=== PATIENT | male | born 1960 | race Caucasian/White ===

== ENCOUNTER 2018-02-03 19:05 | Inpatient (IN) | payer OTHER, MEDICARE ==
[~2018-02-03] VITALS: Ht 177.8 cm; Wt 48.8 kg
[~2018-02-03 19:05] MED LIST: HYDR10SO PO
[2018-02-03 19:25] VITALS: BP 108/67; PULSE 97; RESP 16; TEMP 97; O2SAT 99
[2018-02-03] MEDS ORDERED: METO25TA3 PO (19:34)
[2018-02-03] MEDS ORDERED: SODIUM CHLOR 0.9% 1000 ML INJ 1,000 ML IV ONE (19:45)
--- NOTE | 2018-02-03 19:46 | RADRPT ---
EXAM DATE/TIME: 02/03/2018 19:32 [facility] COMPARISON: No previous studies available for comparison. INDICATIONS : Cough MEDICAL HISTORY : None. SURGICAL HISTORY : None. ENCOUNTER: Initial ACUITY: 1 day PAIN SCORE: Non-responsive. LOCATION: chest FINDINGS: A single view of the chest demonstrates the lungs to be symmetrically aerated without evidence of mas s, infiltrate or effusion. The cardiomediastinal contours are unremarkable. Osseous structures are intact. CONCLUSION: Normal examination. Hollis Tobias Jr., MD on February 03, 2018 at 19:44 Board Certified Radiologist. This report was verified electronically.
--- NOTE | 2018-02-03 20:14 | RADRPT ---
EXAM DATE/TIME: 02/03/2018 19:52 [facility] COMPARISON: No previous studies available for comparison. INDICATIONS : Altered mental status for four days RADIATION DOSE: 32.02 CTDIvol (mGy) MEDICAL HISTORY : Cirrhosis. SURGICAL HISTORY : None. ENCOUNTER: Initial ACUITY: 4 - 6 days PAIN SCALE: 0/10 LOCATION: cranial TECHNIQUE: Multiple contiguous axial images were obtained of the head. Using automated exposure control and adj ustment of the mA and/or kV according to patient size, radiation dose was kept as low as reasonably a chievable to obtain optimal diagnostic quality images. DICOM format image data is available electro nically for review and comparison. FINDINGS: Motion artifact generates limitations to this study. CEREBRUM: The ventricles are normal for age. No evidence of midline shift, mass lesion, hemorrhage or acute in farction. Chronic subdural fluid collections overlie the frontal lobes bilaterally. Maximum thickness on the left is 1.1 cm and on the right 5 mm. No acute hemorrhage. No mass effect.. POSTERIOR FOSSA: The cerebellum and brainstem are intact. The 4th ventricle is midline. The cerebellopontine angle i s unremarkable. EXTRACRANIAL: The visualized portion of the orbits is intact. SKULL: The calvaria is intact. No evidence of skull fracture. CONCLUSION: 1. Significantly limited by motion artifact. 2. Chronic subdural fluid collections bilaterally. No acute hemorrhage. 3. No acute abnormality. Hollis Tobias Jr., MD on February 03, 2018 at 20:10 Board Certified Radiologist. This report was verified electronically.
[2018-02-03 20:19] LABS: AUTOMATED NEUTROPHIL # 3.2 TH/MM3 (1.8-7.7); BASOPHIL % 0.7 % (0.0-2.0); EOSINOPHIL % 0.1 % (0.0-4.0); HEMATOCRIT 37.7 % (39.0-51.0); HEMOGLOBIN 12.4 GM/DL (13.0-17.0); LYMPH % 9.5 % (9.0-44.0); LYMPHOCYTE # 0.4 TH/MM3 (1.0-4.8); MEAN CELL VOLUME 107.4 FL (80.0-100.0); MEAN CORPUSCULAR HEMOGLOBIN 35.2 PG (27.0-34.0); MEAN CORPUSCULAR HGB CONC 32.8 % (32.0-36.0); MEAN PLATELET VOLUME 10.7 FL (7.0-11.0); MONO % 5.3 % (0.0-8.0); MONOCYTE # 0.2 TH/MM3 (0-0.9); NEUT % 84.4 % (16.0-70.0); PLATELET COUNT 95 TH/MM3 (150-450); RED BLOOD COUNT 3.51 MIL/MM3 (4.50-5.90); WHITE BLOOD COUNT 3.8 TH/MM3 (4.0-11.0)
[2018-02-03 20:24] LABS: AST (GOT) 431 U/L (15-37); BICARBONATE 12.7 MEQ/L (21.0-32.0); BLOOD UREA NITROGEN 19 MG/DL (7-18); CHLORIDE 102 MEQ/L (98-107); CREATININE 0.81 MG/DL (0.60-1.30); GLOMERULAR FILTRATION RATE 98 ML/MIN (>89); GLUCOSE,RANDOM 80 MG/DL (74-106); INTERNATIONAL NORMALIZED RATIO 1.1 RATIO; MAGNESIUM 1.3 MG/DL (1.5-2.5); PROTHROMBIN TIME - PATIENT 11.3 SEC (9.8-11.6); SODIUM (NA) 145 MEQ/L (136-145)
--- NOTE | 2018-02-03 20:25 | PD ---
HPI Chief Complaint: Altered Mental Status Time Seen by Provider: 19:24 Travel History International Travel<30 days: No Contact w/Intl Traveler<30days: No Traveled to known affect area: No History of Present Illness HPI 58-year-old male that presents to the ED for evaluation of altered mental status and alcohol abuse. Per report I was given by ambulance patient apparently was discontinued off his narcotic pain medication recently. Unclear as to why. He also has a significant history of alcohol use and apparently drinks about 1.5 L of vodka a day and apparently for the past 3-4 days patient has apparently had 7 bottles of's 1.5 L of vodka. Patient himself is not a good historian and cannot really give me much history. He appears to be very altered and intoxicated. He denies any pain and apparently he has some history of chronic back problems. He does take metoprolol. Unclear if patient is taking any medications. Per report given by ED nurse and ambulance apparently came shortly and told them that he has been drinking a lot and he has been altered for the past 3-4 days. No other history obtained. No sign of trauma. This is unusual for him per . He apparently does have a history of cirrhosis per the 's report. I will for she was not able to talk to the but she left before I could get into the room. Patient has no allergies to medication. Complains of nothing to me. Easily arousable and is somnolent. he is only alert to himself. PFSH Past Medical History Depression: Yes Cirrhosis: Yes Hypertension: Yes Past Surgical History Abdominal Surgery: Yes Social History Alcohol Use: Yes (daily) Tobacco Use: Yes (1ppd) Substance Use: No Allergies-Medications (Allergen,Severity, Reaction): Coded Allergies: No Known Allergies (Unverified Adverse Reaction, Unknown, 02/03/18) Reported Meds & Prescriptions Reported Meds & Active Scripts Active Reported Metoprolol Tartrate 25 Mg Tab 25 Mg PO DAILY Review of Systems ROS Limitations: Intoxication, Poor Historian Except as stated in HPI: all other systems reviewed are Neg Physical Exam Exam Limitations: Intoxication, Poor Historian Narrative GENERAL: SKIN: Warm and dry. HEAD: Atraumatic. Normocephalic. EYES: Pupils equal and round 4 mm reactive and accommodate. No scleral icterus. No injection or drainage. ENT: No nasal bleeding or discharge. Mucous membranes pink and moist. Tongue is midline. No uvula deviation. NECK: Trachea midline. No JVD. CARDIOVASCULAR: Regular rate and rhythm. No murmurs, S3, S4. RESPIRATORY: No accessory muscle use. Clear to auscultation. Breath sounds equal bilaterally. GASTROINTESTINAL: Abdomen soft, non-tender, nondistended. Hepatic and splenic margins not palpable. MUSCULOSKELETAL: Extremities without clubbing, cyanosis, or edema. No obvious deformities. Full range of motion of the upper and lower extremities bilaterally. 2+ pulses bilaterally. NEUROLOGICAL: Awake and alert and oriented 1. No obvious cranial nerve deficits. Motor grossly within normal limits. Five out of 5 muscle strength in the arms and legs. Normal speech. PSYCHIATRIC: Intoxicated mood and affect; insight and judgment not present at this time Data Data Last Documented VS Vital Signs Date Time Temp Pulse Resp B/P (MAP) Pulse Ox O2 Delivery O2 Flow Rate FiO2 02/03/18 19:25 97.0 97 16 108/67 (81) 99 Orders Orders Complete Blood Count With Diff (02/03/18:) Comprehensive Metabolic Panel (02/03/18:) Ckmb (Isoenzyme) Profile (02/03/18:29) Prothrombin Time / Inr (Pt) (02/03/18:) Act Partial Throm Time (Ptt) (02/03/18:) Blood Culture (02/03/18:) Urinalysis - C+S If Indicated (02/03/18:) Magnesium (Mg) (02/03/18:29) Ammonia (02/03/18:) Thyroid Stimulating Hormone (02/03/18:29) Chest, Single Ap (02/03/18:) Ct Brain W/O Iv Contrast(Rout) (02/03/18:29) Iv Access Insert/Monitor (02/03/18:) Ecg Monitoring (02/03/18:) Oximetry (02/03/18:) Drug Screen, Random Urine (02/03/18:29) Alcohol (Ethanol) (02/03/18 19:29) Salicylates (Aspirin) (02/03/18 19:29) Tylenol (Acetaminophen) (5/21/18 19:29) Sodium Chlor 0.9% 1000 Ml Inj (Ns 1000 M (02/03/18 19:45) Labs Laboratory Tests Test 02/03/18 19:45 MDM Medical Decision Making Medical Screen Exam Complete: Yes Emergency Medical Condition: Yes Medical Record Reviewed: Yes Interpretation(s) Last Impressions Chest X-Ray 02/03/181928 Signed Impressions: Service Date/Time: Saturday, February 03, 2018 19:32 - CONCLUSION: Normal examination. Hollis Tobias Jr., MD Differential Diagnosis Alcohol abuse versus altered mental status versus CVA versus ACS versus dehydration versus encephalopathy versus sepsis Narrative Course 58-year-old male that presents to the ED for evaluation of altered mental status and alcohol. Patient was properly examined and was found to have signs and symptoms consistent with appears to be altered mental status. Likely secondary to substance use. Patient was found to be hypotensive by ambulance. Initial blood pressure was 70 systolic. Patient was given 1 L by ambulance with improvement of blood pressure. Here patient still in the 100 systolic but was given another liter of fluid. Labs and imaging order. Labs and imaging showed Frankie Alexis February 03, 2018 20:25
[2018-02-03 20:40] LABS: ACETAMINOPHEN LESS THAN 2.0 MCG/ML (10.0-30.0); ALKALINE PHOSPHATASE 252 U/L (45-117); ALT (GPT) 138 U/L (12-78); CALCIUM-PROTEIN CORRECTED 7.6 MG/DL (8.5-10.1); TOTAL BILIRUBIN ADULT 2.4 MG/DL (0.2-1.0)
[2018-02-03] MEDS ORDERED: LORazepam 2 MG/ML VIAL IV PUSH PRN ×4 (20:45)
[2018-02-03] MEDS ORDERED: LORazepam 2 MG TAB PO PRN (20:45)
[2018-02-03] MEDS ORDERED: LORazepam 1 MG TAB PO PRN (20:45)
[2018-02-03] MEDS ORDERED: ACETAMINOPHEN 325 MG TAB PO PRN ×2 (20:45→21:00)
[2018-02-03] MEDS ORDERED: FLUMAZENIL 0.5 MG/5 ML VIAL IV PUSH PRN (20:45)
[2018-02-03] MEDS ORDERED: ONDANSETRON ODT 4 MG TAB PO PRN (20:45)
[2018-02-03] MEDS ORDERED: LACTULOSE SYRUP 20 GM/30 ML CUP PO ONE (20:45)
[2018-02-03] MEDS: SODIUM CHLORIDE 0.9% FLUSH 10 ML FLUSH IV FLUSH SCH (21:00)
[2018-02-03] MEDS ORDERED: BISACODYL 10 MG SUPP RECTAL PRN (21:00)
[2018-02-03] MEDS ORDERED: NALOXONE HCL 0.4 MG/ML AMP IV PUSH PRN (21:00)
[2018-02-03] MEDS: LACTULOSE SYRUP 20 GM/30 ML CUP PO SCH (21:00)
[2018-02-03] MEDS ORDERED: SENNOSIDES 8.6 MG TAB PO PRN (21:00)
[2018-02-03] MEDS ORDERED: SODIUM CHLORIDE 0.9% FLUSH 10 ML FLUSH IV FLUSH PRN (21:00)
[2018-02-03] MEDS ORDERED: MAGNESIUM HYDROXIDE SUSP 30 ML CUP PO PRN (21:00)
--- NOTE | 2018-02-03 21:21 | HHI.HP ---
HPI Service [facility] Primary Care Physician No Primary Care Physician Admission Diagnosis altered mental status, hepatic encephalopathy, alcohol abuse Diagnoses: Chief Complaint: altered mental status, alcohol abuse. Travel History International Travel<30 Days: No Contact w/Intl Traveler <30 Da: No Traveled to Known Affected Are: No History of Present Illness Mr. Rodriguez is a 58 year old male with a history of alcohol abuse who presents to the ED on 02/03/2018 due to altered mental status and alcohol abuse. He has been drinking about 1.5 L of vodka every day. Per ED note patient was fairly altered and intoxicated at the time of the examination. At the time of this interview, patient is alert, oriented 3 and able to converse coherently. He admits to drinking a lot. Denies any chest pain, shortness of breath, cough, fever or chills. No abdominal pain. He does report significant dysphagia especially to solids. His dysphagia symptoms have been present for about 3 months during which he has lost about 50 pounds. Whenever he eats, he throws up. Denies any changes in bowel or bladder habits. Review of Systems Except as stated in HPI: all other systems reviewed are Neg Past Family Social History Past Medical History Alcoholic liver disease, depression, hypertension Past Surgical History splenectomy Reported Medications Metoprolol tartrate 25 mg daily Allergies: Coded Allergies: No Known Allergies (Unverified Allergy, Unknown, 02/03/18) Family History No family history of cancer, diabetes, hypertension Social History Patient drinks alcohol daily. Smokes 1 pack a day. Denies using illicit drugs. Physical Exam Vital Signs Vital Signs Date Time Temp Pulse Resp B/P (MAP) Pulse Ox O2 Delivery O2 Flow Rate FiO2 02/03/18 19:25 97.0 97 16 108/67 (81) 99 Physical Exam GENERAL: Alert, oriented to person, place, time. Knows the name of the president. Somewhat flat affect and cachectic looking. SKIN: No rashes, ecchymoses or lesions. Warm and dry. HEAD: Atraumatic. Normocephalic. No temporal or scalp tenderness. EYES: Pupils equal round and reactive. No injection or drainage. ENT: Nose without bleeding, purulent drainage or septal hematoma. Airway patent. NECK: Trachea midline. No lymphadenopathy. Supple, nontender, no meningeal signs. CARDIOVASCULAR: Regular rate and rhythm without murmurs, gallops, or rubs. No JVD. RESPIRATORY: Clear to auscultation. Breath sounds equal bilaterally. No wheezes , rales, or rhonchi. GASTROINTESTINAL: Abdomen somewhat firm, non-tender, nondistended. No guarding. There is a well-healed incision mid abdomen. MUSCULOSKELETAL: Extremities without clubbing, cyanosis, or edema. NEUROLOGICAL: Awake and alert. Cranial nerves II through XII intact. No focal neurological deficits. Normal speech. Laboratory Laboratory Tests Test 02/03/18 19:45 White Blood Count 3.8 Red Blood Count 3.51 Hemoglobin 12.4 Hematocrit 37.7 Mean Corpuscular Volume 107.4 Mean Corpuscular Hemoglobin 35.2 Mean Corpuscular Hemoglobin Concent 32.8 Red Cell Distribution Width 17.0 Platelet Count 95 Mean Platelet Volume 10.7 Neutrophils (%) (Auto) 84.4 Lymphocytes (%) (Auto) 9.5 Monocytes (%) (Auto) 5.3 Eosinophils (%) (Auto) 0.1 Basophils (%) (Auto) 0.7 Neutrophils # (Auto) 3.2 Lymphocytes # (Auto) 0.4 Monocytes # (Auto) 0.2 Eosinophils # (Auto) 0.0 Basophils # (Auto) 0.0 CBC Comment AUTO DIFF Prothrombin Time 11.3 Prothromb Time International Ratio 1.1 Activated Partial Thromboplast Time 23.3 Blood Urea Nitrogen 19 Creatinine 0.81 Random Glucose 80 Total Protein 6.0 Albumin 3.0 Calcium Level 7.0 Magnesium Level 1.3 Alkaline Phosphatase 252 Aspartate Amino Transf (AST/SGOT) 431 Alanine Aminotransferase (ALT/SGPT) 138 Total Bilirubin 2.4 Sodium Level 145 Potassium Level 3.5 Chloride Level 102 Carbon Dioxide Level 12.7 Anion Gap 30 Estimat Glomerular Filtration Rate 98 Protein Corrected Calcium 7.6 Ammonia 75 Total Creatine Kinase 48 Thyroid Stimulating Hormone 3rd Gen 0.605 Salicylates Level 3.3 Acetaminophen Level LESS THAN 2.0 Ethyl Alcohol Level 415 Date/Time Source Procedure Growth Status 02/03/18 19:45 Blood Peripheral Aerobic Blood Culture Pending Received 02/03/18 19:45 Blood Peripheral Anaerobic Blood Culture Pending Received Result Diagram: 02/03/18194402/03/181944 Imaging Last Impressions Head CT 02/03/181928 Signed Impressions: Service Date/Time: Saturday, February 03, 2018 19:52 - CONCLUSION: 1. Significantly limited by motion artifact. 2. Chronic subdural fluid collections bilaterally. No acute hemorrhage. 3. No acute abnormality. Hollis Tobias Jr., MD Chest X-Ray 02/03/181928 Signed Impressions: Service Date/Time: Saturday, February 03, 2018 19:32 - CONCLUSION: Normal examination. MD Сергей Smith Jr. VTE Risk Assessment Caprini VTE Risk Assessment: Mod/High Risk (score >= 2) Caprini Risk Assessment Model Point Value = 1 Point Value = 2 Point Value = 3 Point Value = 5 Age 41-60 Minor surgery BMI > 25 kg/m2 Swollen legs Varicose veins or History of unexplained or recurrent spontaneous Oral contraceptives or hormone replacement Sepsis (< 1 month) Serious lung disease, including pneumonia (< 1 month) Abnormal pulmonary function Acute myocardial infarction Congestive heart failure (< 1 month) History of inflammatory bowel disease Medical patient at bed rest Age 61-74 Arthroscopic surgery Major open surgery (> 45 min) Laparoscopic surgery (> 45 min) Malignancy Confined to bed (> 72 hours) Immobilizing plaster cast Central venous access Age >= 75 History of VTE Family history of VTE Factor V Leiden Prothrombin [id number] Lupus anticoagulant Anticardiolipin antibodies Elevated serum homocysteine Heparin-induced thrombocytopenia Other congenital or acquired thrombophilia Stroke (< 1 month) Elective arthroplasty Hip, pelvis, or leg fracture Acute spinal cord injury (< 1 month) Prophylaxis Regimen Total Risk Factor Score Risk Level Prophylaxis Regimen 0-1 Low Early ambulation 2 Moderate Order ONE of the following: *Sequential Compression Device (SCD) *Heparin 5000 units SQ BID 3-4 Higher Order ONE of the following medications: *Heparin 5000 units SQ TID *Enoxaparin/Lovenox 40 mg SQ daily (WT < 150 kg, CrCl > 30 mL/min) *Enoxaparin/Lovenox 30 mg SQ daily (WT < 150 kg, CrCl > 10-29 mL/min) *Enoxaparin/Lovenox 30 mg SQ BID (WT < 150 kg, CrCl > 30 mL/min) AND/OR *Sequential Compression Device (SCD) 5 or more Highest Order ONE of the following medications: *Heparin 5000 units SQ TID (Preferred with Epidurals) *Enoxaparin/Lovenox 40 mg SQ daily (WT < 150 kg, CrCl > 30 mL/min) *Enoxaparin/Lovenox 30 mg SQ daily (WT < 150 kg, CrCl > 10-29 mL/min) *Enoxaparin/Lovenox 30 mg SQ BID (WT < 150 kg, CrCl > 30 mL/min) AND *Sequential Compression Device (SCD) Assessment and Plan Problem List: (1) Alcoholic liver disease ICD Code: K70.9 - Alcoholic liver disease, unspecified (2) Hepatic encephalopathy ICD Code: K72.90 - Hepatic failure, unspecified without coma Assessment and Plan Mr. Rodriguez is a 58-year-old male with a history of alcohol abuse who presents to the emergency department due to altered mental status, alcohol abuse. Patient has been drinking about 1.5 L of vodka every day. Acute hepatic encephalopathy -Initial ammonia level 75. AST, ALT 431, 138 respectively. Alk phos 252. INR 1.1, total bilirubin 2.4 -No need to follow ammonia level. -We will start on lactulose 30 mg 4 times daily to obtain 3-4 loose bowel movements. -Also start rifaximin 550 mg twice daily Alcoholic liver disease Dysphagia Weight loss -Dysphagia and weight loss in the background of alcoholic liver disease is concerning for malignancy. -We will obtain hepatitis panel. Consult GI for further workup including possibly EGD. -Speech therapy consult to do swallow evaluation. Alcohol abuse Hypomagnesemia - Continue CIWA protocol. Folic acid, thiamine, IV fluid. - We will give 4 g of magnesium sulfate IV. Full code. Lovenox. Physician Certification 2 Midnight Certification Type: Admission for Inpatient Services Order for Inpatient Services The services are ordered in accordance with Medicare regulations or non- Medicare payer requirements, as applicable. In the case of services not specified as inpatient-only, they are appropriately provided as inpatient services in accordance with the 2-midnight benchmark. Estimated LOS (days): 2 days is the estimated time the patient will need to remain in the hospital, assuming treatment plan goals are met and no additional complications. Post-Hospital Plan: Tiffani Dumont DO February 03, 2018 9:21 pm
[2018-02-03 21:46] LABS: BANDS 7 % (0-6); LYMPHOCYTES 5 % (9-44); MONOCYTES 3 % (0-8); NEUTROPHIL # MANUAL DIFF 3.5 TH/MM3 (1.8-7.7); POLYS (SEG NEUTROPHILS) 85 % (16-70)
[2018-02-03 21:59] LABS: TARGET CELLS 1+ (NORMAL)
[2018-02-03] MEDS ORDERED: ENOXAPARIN SODIUM 40 MG/0.4 ML SYRINGE SQ SCH (22:00)
[2018-02-03] MEDS ORDERED: ACETAMINOPHEN 500 MG CPLT PO PRN (22:00)
[2018-02-03] MEDS: SODIUM CHLOR 0.9% 1000 ML INJ 1,000 ML IV SCH (22:02)
[2018-02-03 22:37] VITALS: BP 120/71; PULSE 117; RESP 16; TEMP 97.4; O2SAT 95
[2018-02-03] MEDS: THIAMINE INJ 100 MG in SODIUM CHLORIDE 0.9% INJ 100 ML IV SCH (22:51)
[2018-02-03] MEDS: RIFAXIMIN 550 MG TAB PO SCH (22:51)
[2018-02-03 23:00] VITALS: O2SAT 97
[2018-02-04] VITALS (8 sets, daily range): BP systolic 115–158; BP diastolic 68–95; PULSE 103–118; RESP 16–23; TEMP 97.6–98.9; O2SAT 96–99
[2018-02-04] MEDS: MAGNESIUM SULFATE 1 GM PREMIX 100 ML IV SCH ×4 (00:20→11:04)
[2018-02-04] MEDS: ONDANSETRON HCL 4 MG/2 ML VIAL IVP PRN ×2 (03:25→15:24)
[2018-02-04] MEDS: LACTULOSE SYRUP 20 GM/30 ML CUP PO SCH ×4 (08:43→20:05)
[2018-02-04] MEDS: FOLIC ACID 1 MG TAB PO SCH (08:47)
[2018-02-04] MEDS: RIFAXIMIN 550 MG TAB PO SCH ×2 (08:47→20:05)
[2018-02-04] MEDS: SODIUM CHLORIDE 0.9% FLUSH 10 ML FLUSH IV FLUSH SCH ×2 (08:50→20:05)
[2018-02-04 09:21] LABS: AUTOMATED NEUTROPHIL # 5.6 TH/MM3 (1.8-7.7); BASOPHIL % 0.3 % (0.0-2.0); HEMATOCRIT 32.3 % (39.0-51.0); HEMOGLOBIN 10.5 GM/DL (13.0-17.0); LYMPH % 8.4 % (9.0-44.0); LYMPHOCYTE # 0.5 TH/MM3 (1.0-4.8); MEAN CELL VOLUME 108.2 FL (80.0-100.0); MEAN CORPUSCULAR HEMOGLOBIN 35.1 PG (27.0-34.0); MEAN CORPUSCULAR HGB CONC 32.5 % (32.0-36.0); MONO % 5.6 % (0.0-8.0); MONOCYTE # 0.4 TH/MM3 (0-0.9); NEUT % 85.7 % (16.0-70.0); PLATELET COUNT 87 TH/MM3 (150-450); RED BLOOD COUNT 2.99 MIL/MM3 (4.50-5.90); RED CELL DISTRIBUTION WIDTH 16.5 % (11.6-17.2); WHITE BLOOD COUNT 6.6 TH/MM3 (4.0-11.0)
--- NOTE | 2018-02-04 09:46 | PD.CONS ---
HPI History of Present Illness This is a 58 year old male with hx etoh abuse who presented to the ER with AMS. GI is consulted for dysphagia, weight loss, vomiting, hepatic encephalopathy. He denies any difficulty swallowing but says he has no appetite. He admits losing weight, 110lbs in 2 months. He has had n/v in the last 2 months as well. He admits lower abd pain for 3 months. He had an EGD and colonoscopy in [place] and was told he had "ulcers." At that time he was having blood in his stool but denies having that now. He admits black tarry stool. He drinks "alot " and says he stopped for awhile and then started again last weekend. Per EMR he drinks 1.5L vodka daily. Pt is poor and inconsistent historian. (Kerrie Shannon) PFSH Past Medical History Alcoholic liver disease, depression, hypertension Past Surgical History splenectomy (Kerrie Shannon) Coded Allergies: No Known Allergies (Unverified Allergy, Unknown, 02/03/18) Family History No family history of cancer, diabetes, hypertension Social History Patient drinks alcohol daily. Smokes 1 pack a day. Denies using illicit drugs. (Kerrie Shannon) Review of Systems Constitutional: COMPLAINS OF: Weight loss Endocrine: DENIES: Polydipsia Eyes: DENIES: Blurred vision Ears, nose, mouth, throat: DENIES: Hearing loss Respiratory: DENIES: Cough Cardiovascular: DENIES: Chest pain Gastrointestinal: COMPLAINS OF: Abdominal pain, Black stools, Nausea, Vomiting , Anorexia, DENIES: Bloody stools, Difficulty Swallowing Genitourinary: DENIES: Urinary incontinence Musculoskeletal: DENIES: Muscle aches Integumentary: DENIES: Abnormal pigmentation Hematologic/lymphatic: DENIES: Bruising Immunologic/allergic: DENIES: Eczema Neurologic: COMPLAINS OF: Abnormal gait (ambulates with cane) Psychiatric: COMPLAINS OF: Confusion (Kerrie Shannon) GI Exam Vitals I&O Vital Signs Date Time Temp Pulse Resp B/P (MAP) Pulse Ox O2 Delivery O2 Flow Rate FiO2 02/04/18 08:32 97.6 104 23 124/69 (87) 96 02/04/18 03:15 97.7 103 16 115/68 (84) 98 02/03/18 23:00 97 02/03/18 22:37 97.4 117 16 120/71 (87) 95 02/03/18 19:25 97.0 97 16 108/67 (81) 99 Imaging Last Impressions Head CT 02/03/181928 Signed Impressions: Service Date/Time: Saturday, February 03, 2018 19:52 - CONCLUSION: 1. Significantly limited by motion artifact. 2. Chronic subdural fluid collections bilaterally. No acute hemorrhage. 3. No acute abnormality. Hollis Tobias Jr., MD Chest X-Ray 02/03/181928 Signed Impressions: Service Date/Time: Saturday, February 03, 2018 19:32 - CONCLUSION: Normal examination. Hollis Tobias Jr., MD Laboratory Test 02/03/18 19:45 02/04/18 08:57 White Blood Count 3.8 TH/MM3 6.6 TH/MM3 Red Blood Count 3.51 MIL/MM3 2.99 MIL/MM3 Hemoglobin 12.4 GM/DL 10.5 GM/DL Hematocrit 37.7 % 32.3 % Mean Corpuscular Volume 107.4 FL 108.2 FL Mean Corpuscular Hemoglobin 35.2 PG 35.1 PG Mean Corpuscular Hemoglobin Concent 32.8 % 32.5 % Red Cell Distribution Width 17.0 % 16.5 % Platelet Count 95 TH/MM3 87 TH/MM3 Mean Platelet Volume 10.7 FL 10.0 FL Neutrophils (%) (Auto) 84.4 % 85.7 % Lymphocytes (%) (Auto) 9.5 % 8.4 % Monocytes (%) (Auto) 5.3 % 5.6 % Eosinophils (%) (Auto) 0.1 % 0.0 % Basophils (%) (Auto) 0.7 % 0.3 % Neutrophils # (Auto) 3.2 TH/MM3 5.6 TH/MM3 Lymphocytes # (Auto) 0.4 TH/MM3 0.5 TH/MM3 Monocytes # (Auto) 0.2 TH/MM3 0.4 TH/MM3 Eosinophils # (Auto) 0.0 TH/MM3 0.0 TH/MM3 Basophils # (Auto) 0.0 TH/MM3 0.0 TH/MM3 CBC Comment AUTO DIFF AUTO DIFF Differential Total Cells Counted 100 Neutrophils % (Manual) 85 % Band Neutrophils % 7 % Lymphocytes % 5 % Monocytes % 3 % Neutrophils # (Manual) 3.5 TH/MM3 Differential Comment FINAL DIFF MANUAL Platelet Estimate LOW Platelet Morphology Comment NORMAL Target Cells 1+ Prothrombin Time 11.3 SEC Prothromb Time International Ratio 1.1 RATIO Activated Partial Thromboplast Time 23.3 SEC Blood Urea Nitrogen 19 MG/DL Creatinine 0.81 MG/DL Random Glucose 80 MG/DL Total Protein 6.0 GM/DL Albumin 3.0 GM/DL Calcium Level 7.0 MG/DL Magnesium Level 1.3 MG/DL Alkaline Phosphatase 252 U/L Aspartate Amino Transf (AST/SGOT) 431 U/L Alanine Aminotransferase (ALT/SGPT) 138 U/L Total Bilirubin 2.4 MG/DL Sodium Level 145 MEQ/L Potassium Level 3.5 MEQ/L Chloride Level 102 MEQ/L Carbon Dioxide Level 12.7 MEQ/L Anion Gap 30 MEQ/L Estimat Glomerular Filtration Rate 98 ML/MIN Protein Corrected Calcium 7.6 MG/DL Ammonia 75 MCMOL/L Total Creatine Kinase 48 U/L Thyroid Stimulating Hormone 3rd Gen 0.605 uIU/ML Salicylates Level 3.3 MG/DL Acetaminophen Level LESS THAN 2.0 MCG/ML Ethyl Alcohol Level 415 MG/DL Date/Time Source Procedure Growth Status 02/03/18 19:45 Blood Peripheral Aerobic Blood Culture Pending Received 02/03/18 19:45 Blood Peripheral Anaerobic Blood Culture Pending Received Physical Examination HEENT: PERRL; normocephalic; atraumatic; no jaundice. CHEST: CTA CARDIAC: RRR ABDOMEN: Soft, distended, nontender; no hepatosplenomegaly; bowel sounds are present in all four quadrants. EXTREMITIES: No clubbing, cyanosis, or edema. thin SKIN: Normal; no rash; no jaundice. RECORDS ASSOCIATE: oriented but slow to answer (Kerrie ShannonP) Assessment and Plan Plan ASSESSMENT - anorexia, weight loss - unclear etiology. pt cites loss > 100lbs in 2 months. drinks heavily, smokes. denies dysphagia. US liver pending. hx unclear. - n/v - unclear etiology. - ?melena - pt admits black tarry stools, can provide no further info. says he had EGD 2 months ago and was told he had ulcers. does not know where he had this done. - rectal bleeding - some months ago, resolved per pt. thinks he had recent colonoscopy but can provide no details - elevated LFTs - likely 2/2 etoh. US liver pending. etoh 415 on admission. hep panel pending. - elevated NH - 75. PLAN - liver w/u - lactulose - EGD and colonoscopy - obtain consent - NPO after midnight - clears today - mg citrate - await US - consider CT scan - etoh cessation - further recs as case unfolds pt seen by myself and DR Medina and this note is on his behalf (Kerrie Shannon) Physician Comments Patient seen and examined Agree with above Continue with current supportive care Monitor labs EGD colonoscopy tomorrow (Ashvin Medina MD) Kerrie Shannon February 04, 2018 09:45 Ashvin Medina MD February 04, 2018 21:14
[2018-02-04] MEDS: THIAMINE INJ 100 MG in SODIUM CHLORIDE 0.9% INJ 100 ML IV SCH (09:56)
[2018-02-04 10:12] LABS: BANDS 10 % (0-6); BASOPHILS 1 % (0-2); CORRECTED NUCLEATED RBC 3 /100 WBC (0-0); LYMPHOCYTES 2 % (9-44); METAMYELOCYTES 1 % (0-1); MONOCYTES 1 % (0-8); NEUTROPHIL # MANUAL DIFF 6.3 TH/MM3 (1.8-7.7); NUCLEATED RED BLOOD CELL 3 (0-0); POLYS (SEG NEUTROPHILS) 84 % (16-70)
[2018-02-04 10:17] LABS: OVALOCYTES 1+ (NORMAL)
--- NOTE | 2018-02-04 10:41 | HHI.PR ---
Subjective Remarks Follow-up on patient with alcohol abuse, hepatic encephalopathy. Patient seen and examined. Patient is a very poor historian. States he is tired. He is complaining of having some anxiety and shakiness. When asked if he is having any auditory or visual hallucinations he replies sometimes. He complains of diarrhea but cannot tell me when his last bowel movement was. He denies any complaints of nausea or vomiting. He denies any fever or chills. Denies any chest pain or shortness of breath. He knows he is in the hospital but cannot tell me that he is in [place]. He is unable to answer correctly the city he is in. He is able to tell me the state, year and president. Objective Vitals Vital Signs Date Time Temp Pulse Resp B/P (MAP) Pulse Ox O2 Delivery O2 Flow Rate FiO2 02/04/18 08:32 97.6 104 23 124/69 (87) 96 02/04/18 03:15 97.7 103 16 115/68 (84) 98 02/03/18 23:00 97 02/03/18 22:37 97.4 117 16 120/71 (87) 95 02/03/18 19:25 97.0 97 16 108/67 (81) 99 I/O 02/03/18 02/03/18 02/03/18 02/04/18 02/04/18 02/04/18 07:00 15:00 23:00 07:00 15:00 23:00 Intake Total 100 ml Balance 100 ml Intake IV Total 100 ml Result Diagram: 02/04/18 0857 02/03/181944 Imaging Last Impressions Head CT 02/03/181928 Signed Impressions: Service Date/Time: Saturday, February 03, 2018 19:52 - CONCLUSION: 1. Significantly limited by motion artifact. 2. Chronic subdural fluid collections bilaterally. No acute hemorrhage. 3. No acute abnormality. Hollis Tobias Jr., MD Chest X-Ray 02/03/181928 Signed Impressions: Service Date/Time: Saturday, February 03, 2018 19:32 - CONCLUSION: Normal examination. Hollis Tobias Jr., MD Objective Remarks GENERAL: This is a thin, cachectic ill-appearing male, INAD. Awake and alert. Partially oriented, unable to tell me correctly the name of the hospital or city he is in. Knows his name, year, state and name of the president. Mildly tremulous. SKIN: No rashes, ecchymoses or lesions. Warm and dry. HEAD: Atraumatic. Normocephalic. No temporal or scalp tenderness. EYES: Pupils equal round and reactive. No injection or drainage. ENT: Nose without bleeding or purulent drainage. Airway patent. Dry mucus membranes. NECK: Trachea midline. No lymphadenopathy. Supple, nontender, no meningeal signs. CARDIOVASCULAR: Tachycardic without murmurs, gallops, or rubs. No JVD. RESPIRATORY: Clear to auscultation. Breath sounds equal bilaterally. No wheezes , rales, or rhonchi. GASTROINTESTINAL: Abdomen somewhat firm, tender in RUQ and epigastric area, nondistended. No guarding. There is a well-healed incision mid abdomen. MUSCULOSKELETAL: Extremities without clubbing, cyanosis, or edema. NEUROLOGICAL: Awake and alert. Cranial nerves II through XII grossly intact. Able to move all extremities spontaneously. No focal neurological deficits. Normal speech. PSYCHIATRIC: Flat affect. Questionable judgment and insight. Procedures None A/P Problem List: (1) Alcoholic liver disease ICD Code: K70.9 - Alcoholic liver disease, unspecified (2) Hepatic encephalopathy ICD Code: K72.90 - Hepatic failure, unspecified without coma Assessment and Plan Mr. Rodriguez is a 58-year-old male with a history of alcohol abuse who presents to the emergency department due to altered mental status, alcohol abuse. Patient has been drinking about 1.5 L of vodka every day. Acute hepatic encephalopathy Alcoholic ketoacidosis Initial ammonia level 75. AST, ALT 431, 138 respectively. Alk phos 252. INR 1.1, total bilirubin 2.4 Bicarb 12.7 Anion gap 30 -repeat CMP this am -continue on lactulose 30 mg 4 times daily to obtain 3-4 loose bowel movements. This patient is such a poor historian, strict intake and output to monitor for BMs. -continue on rifaximin 550 mg twice daily -continue to monitor Alcoholic liver disease Dysphagia Weight loss Dysphagia and weight loss in the background of alcoholic liver disease is concerning for malignancy. -Consult GI for further workup including possibly EGD. -Speech therapy consult to do swallow evaluation. Alcohol abuse Hypomagnesemia, given 4g IV mag -Continue CIWA protocol. Folic acid, thiamine, IV fluid. -repeat Mag level Transaminitis, secondary to above AST 431, ALT 138, Alk phos 252 -Continue to trend LFTs -Avoid hepatotoxic agents -follow up on Liver US results -Follow-up on hepatitis profile results Thrombocytopenia, suspect secondary to liver dysfunction INR 1.1 Platelet count trending down, 95 to 87 -No evidence of active bleeding, continue to monitor -Continue to monitor platelet count and coag studies Macrocytic anemia -Obtain iron studies, ferritin, B12 and folate level -obtain stool for Hemoccult study Full code. Hold [place]. An Hughes February 04, 2018 10:41
[2018-02-04 10:42] LABS: ALBUMIN 3.1 GM/DL (3.4-5.0); BICARBONATE 7.4 MEQ/L (21.0-32.0); CALCIUM 6.6 MG/DL (8.5-10.1); CREATININE 0.55 MG/DL (0.60-1.30); MAGNESIUM 1.5 MG/DL (1.5-2.5)
[2018-02-04 10:47] LABS: TOTAL BILIRUBIN ADULT 2.8 MG/DL (0.2-1.0); TOTAL PROTEIN 5.7 GM/DL (6.4-8.2)
[2018-02-04 10:53] LABS: CALCIUM-PROTEIN CORRECTED 7.3 MG/DL (8.5-10.1)
[2018-02-04] MEDS ORDERED: POTASSIUM CHLORIDE 20 MEQ CONTROLLED RELEASE TAB PO ONE (11:30)
[2018-02-04 13:03] LABS: INTERNATIONAL NORMALIZED RATIO 1.1 RATIO; PROTHROMBIN TIME - PATIENT 11.4 SEC (9.8-11.6)
[2018-02-04] MEDS: CALCIUM CARBONATE 1.25 GM (CA 500 MG) TAB PO SCH ×2 (13:16→20:05)
[2018-02-04 13:42] LABS: % SATURATION IRON PROFILE 85.9 % (20-50); FERRITIN 830 NG/ML (26-388); IRON (FE) 113 MCG/DL (65-175); TOTAL IRON BINDING CAPACITY 132 MCG/DL (250-450)
[2018-02-04 13:47] LABS: CARCINOEMBRYONIC ANTIGEN 8.3 NG/ML (0.2-5.0)
[2018-02-04 14:03] LABS: CA 19-9 6.4 U/ML (0.0-35.0)
[2018-02-04 14:34] LABS: PHOSPHORUS 1.5 MG/DL (2.5-4.9)
--- NOTE | 2018-02-04 15:44 | RADRPT ---
EXAM DATE: 02/04/2018 3:32 PM EDT AGE/SEX: 58 years / Male INDICATIONS: Elevated liver functions. CLINICAL DATA: This is the patient's initial encounter. Patient reports that signs and symptoms have been present for 1 day and indicates a pain score of 3/10. MEDICAL/SURGICAL HISTORY: Hypertension. Chronic obstructive pulmonary disease. Cirrhosis. Al cohol abuse. Splenectomy. Back surgery. Wrist surgery. COMPARISON: No prior [facility] exams available for comparison. MEASUREMENTS (cm x cm x cm): Liver:__ 17.4 cm length Common Bile Duct:__ Nonvisualized Right Kidney:__ 10.7 x 5.2 x 5.0 cm. Spleen:__ n/a FINDINGS: Liver: There is increased echogenicity throughout the liver. No dilated biliary ducts. No evidence o f ascites. Portal Vein: Hepatopedal flow seen in portal vein. Common Duct: No intraluminal mass or stone visualized. Gallbladder: Demonstrates no wall thickening or pericholecystic fluid. No stones seen. Pancreas: The visualized portions are within normal limits. Right Kidney: No mass or hydronephrosis. Measures CONCLUSION: 1. No evidence of gallstones or biliary tract obstruction. 2. Increased echogenicity throughout the liver suggestive of fatty infiltration and/or hepatocellula r disease. Electronically signed by: Jerson Hampton MD 02/04/2018 3:43 PM EDT
[2018-02-04] MEDS ORDERED: MAGNESIUM CITRATE SOLN 300 ML BTL PO ONE ×2 (16:15→18:15)
[2018-02-04] MEDS: SODIUM CHLOR 0.9% 1000 ML INJ 1,000 ML IV SCH (16:16)
[2018-02-04] MEDS ORDERED: POTASSIUM PHOSPHATE MONOBASIC 500 MG TAB PO PRN (19:00)
[2018-02-04] MEDS ORDERED: POTASSIUM PHOSPHATE INJ 30 MMOL in SODIUM CHLOR 0.9% 250 ML INJ 250 ML IV PRN (19:00)
[2018-02-04] MEDS ORDERED: MAGNESIUM OXIDE 400 MG TAB PO PRN (19:00)
[2018-02-04] MEDS ORDERED: SODIUM PHOSPHATE INJ 30 MMOL in SODIUM CHLOR 0.9% 250 ML INJ 240 ML IV PRN (19:00)
[2018-02-04] MEDS ORDERED: POTASSIUM CHLORIDE 25 MEQ EFFERVESCENT TAB PO PRN (19:00)
[2018-02-04] MEDS ORDERED: POTASSIUM CHLOR 20 MEQ PREMIX 100 ML IV PRN (19:00)
[2018-02-04] MEDS ORDERED: POTASSIUM PHOSPHATE MONOBASIC 500 MG TAB PO/TUBE PRN (19:00)
[2018-02-04] MEDS ORDERED: POTASSIUM CHLOR 40 MEQ PREMIX 100 ML IV PRN ×2 (19:00)
[2018-02-04] MEDS ORDERED: MAGNESIUM SULFATE INJ 4 GM in SODIUM CHLORIDE 0.9% INJ 92 ML IV PRN (19:00)
[2018-02-05] VITALS (13 sets, daily range): BP systolic 101–156; BP diastolic 63–98; PULSE 90–129; RESP 12–20; TEMP 97.6–99.3; O2SAT 93–99
[2018-02-05] MEDS: SODIUM CHLOR 0.9% 1000 ML INJ 1,000 ML IV SCH (03:25)
[2018-02-05 06:40] LABS: AUTOMATED NEUTROPHIL # 4.6 TH/MM3 (1.8-7.7); BASOPHIL % 0.1 % (0.0-2.0); EOSINOPHIL % 0.2 % (0.0-4.0); HEMATOCRIT 29.2 % (39.0-51.0); HEMOGLOBIN 9.9 GM/DL (13.0-17.0); LYMPH % 9.5 % (9.0-44.0); LYMPHOCYTE # 0.5 TH/MM3 (1.0-4.8); MEAN CELL VOLUME 105.1 FL (80.0-100.0); MEAN CORPUSCULAR HEMOGLOBIN 35.7 PG (27.0-34.0); MEAN PLATELET VOLUME 10.7 FL (7.0-11.0); MONO % 6.2 % (0.0-8.0); MONOCYTE # 0.3 TH/MM3 (0-0.9); PLATELET COUNT 76 TH/MM3 (150-450); RED BLOOD COUNT 2.78 MIL/MM3 (4.50-5.90); RED CELL DISTRIBUTION WIDTH 15.6 % (11.6-17.2); WHITE BLOOD COUNT 5.4 TH/MM3 (4.0-11.0)
[2018-02-05 07:18] LABS: % SATURATION IRON PROFILE 87.1 % (20-50); ALBUMIN 2.8 GM/DL (3.4-5.0); ALKALINE PHOSPHATASE 288 U/L (45-117); ALT (GPT) 132 U/L (12-78); AST (GOT) 522 U/L (15-37); BICARBONATE 17.4 MEQ/L (21.0-32.0); BLOOD UREA NITROGEN 4 MG/DL (7-18); CALCIUM 6.4 MG/DL (8.5-10.1); CHLORIDE 101 MEQ/L (98-107); CREATININE 0.52 MG/DL (0.60-1.30); FERRITIN 1318 NG/ML (26-388); GLOMERULAR FILTRATION RATE 164 ML/MIN (>89); GLUCOSE,RANDOM 149 MG/DL (74-106); IRON (FE) 111 MCG/DL (65-175); MAGNESIUM 1.3 MG/DL (1.5-2.5); PHOSPHORUS 0.7 MG/DL (2.5-4.9); SODIUM (NA) 142 MEQ/L (136-145); TOTAL BILIRUBIN ADULT 5.1 MG/DL (0.2-1.0); TOTAL IRON BINDING CAPACITY 127 MCG/DL (250-450); TOTAL PROTEIN 5.5 GM/DL (6.4-8.2)
[2018-02-05 07:23] LABS: CALCIUM-PROTEIN CORRECTED 7.2 MG/DL (8.5-10.1)
[2018-02-05 07:56] LABS: BANDS 16 % (0-6); CORRECTED NUCLEATED RBC 17 /100 WBC (0-0); LYMPHOCYTES 3 % (9-44); MONOCYTES 3 % (0-8); NEUTROPHIL # MANUAL DIFF 5.1 TH/MM3 (1.8-7.7); NUCLEATED RED BLOOD CELL 17 (0-0); POLYS (SEG NEUTROPHILS) 78 % (16-70)
[2018-02-05 07:57] LABS: OVALOCYTES 1+ (NORMAL)
[2018-02-05] MEDS: CALCIUM CARBONATE 1.25 GM (CA 500 MG) TAB PO SCH ×2 (08:08→20:43)
[2018-02-05] MEDS: RIFAXIMIN 550 MG TAB PO SCH ×2 (08:08→20:43)
[2018-02-05] MEDS: FOLIC ACID 1 MG TAB PO SCH (08:08)
[2018-02-05] MEDS: SODIUM CHLORIDE 0.9% FLUSH 10 ML FLUSH IV FLUSH SCH ×2 (08:09→20:43)
[2018-02-05] MEDS: THIAMINE INJ 100 MG in SODIUM CHLORIDE 0.9% INJ 100 ML IV SCH (08:09)
[2018-02-05] MEDS: LACTULOSE SYRUP 20 GM/30 ML CUP PO SCH ×4 (08:09→20:43)
--- NOTE | 2018-02-05 09:42 | HHI.PR ---
Subjective Remarks Reports having hallucinations sometimes. Still shaky. Multiple electrolyte abnormalities. Objective Vitals Vital Signs Date Time Temp Pulse Resp B/P (MAP) Pulse Ox O2 Delivery O2 Flow Rate FiO2 02/05/18 06:00 129 02/05/18 04:00 108 02/05/18 04:00 98.5 108 16 152/78 (102) 98 02/05/18 02:00 103 02/05/18 00:00 98.9 106 20 148/98 (115) 99 02/05/18 00:00 106 02/04/18 22:00 104 02/04/18 20:55 97 21 02/04/18 20:00 112 02/04/18 20:00 98.2 112 19 158/85 (109) 98 02/04/18 16:56 98.0 110 23 144/95 (111) 98 02/04/18 13:00 98.7 105 18 142/84 (103) 99 02/04/18 11:13 98.9 118 23 152/88 (109) 98 I/O 02/04/18 02/04/18 02/04/18 02/05/18 02/05/18 02/05/18 07:00 15:00 23:00 07:00 15:00 23:00 Intake Total 200 ml 826 ml 1274 ml 375 ml Output Total 700 ml 1050 ml Balance 200 ml 126 ml 224 ml 375 ml Intake Oral 600 ml 240 ml IV Total 200 ml 226 ml 1034 ml 375 ml Output Urine Total 650 ml 1050 ml Emesis 50 ml # Voids 2 3 # Bowel Movements 2 4 5 Result Diagram: 02/05/18 0458 02/05/18 0458 Objective Remarks GENERAL: Patient appear older than stated age, in no acute distress. CARDIOVASCULAR: Normal rate and regular rhythm without murmurs, gallops, or rubs. RESPIRATORY: Good respiratory efforts. Breath sounds equal and clear to auscultation bilaterally. GASTROINTESTINAL: Abdomen soft, non-tender, non-distended. Normal active bowel sounds MUSCULOSKELETAL: Extremities without cyanosis, or edema. NEURO: Alert & Oriented x4 to person, place, time, situation. Moves all ext x4. Tremulous. PSYCH: Somewhat anxious. Procedures None A/P Problem List: (1) Alcoholic liver disease ICD Code: K70.9 - Alcoholic liver disease, unspecified (2) Hepatic encephalopathy ICD Code: K72.90 - Hepatic failure, unspecified without coma Assessment and Plan 58-year-old male with a history of alcohol abuse who presents to the emergency department due to altered mental status, alcohol abuse. Patient has been drinking about 1.5 L of vodka every day. Acute hepatic encephalopathy Alcoholic ketoacidosis Initial ammonia level 75. AST, ALT 431, 138 respectively. Alk phos 252. INR 1.1, total bilirubin 2.4 Bicarb 12.7 Anion gap 30 Multiple severe electrolytes abnormalities including Hypokalemia, hypomagnesemia , hypocalcemia -Follow up CMP later today -continue on lactulose 30 mg 4 times daily to obtain 3-4 loose bowel movements. This patient is such a poor historian, strict intake and output to monitor for BMs. -continue on rifaximin 550 mg twice daily -continue to monitor - Replace electrolytes per ICU protocol - Change IV fluid to ns +bicarb Alcoholic liver disease Dysphagia Weight loss Dysphagia and weight loss in the background of alcoholic liver disease. -GI following and planning for endoscopy -Speech therapy consult for swallow evaluation. Alcohol dependence Early DTs. Having hallucinations Hypomagnesemia, given 4g IV mag -Continue CIWA protocol. Folic acid, thiamine, IV fluid. Transaminitis, secondary to above AST 431, ALT 138, Alk phos 252 -Continue to trend LFTs -Avoid hepatotoxic agents -follow up on Liver US results -Follow-up on hepatitis profile results Thrombocytopenia, suspect secondary to liver dysfunction INR 1.1 Platelet count trending down -No evidence of active bleeding, continue to monitor -Continue to monitor platelet count and coag studies Macrocytic anemia -Iron level normal. Ferritin high. -Probably alcohol related and liver dysfunction. GI planning for endoscopy. - continue to monitor Full code. Hold Lovenox. Discharge Planning Keep in ICU for today. Monitor progress. Randolph Holden MD February 05, 2018 09:42
[2018-02-05] MEDS: SODIUM BICARBONATE 8.4% INJ 50 MEQ in SODIUM CHLOR 0.45% 1000 ML INJ 1,000 ML IV SCH ×2 (10:00→20:44)
[2018-02-05] MEDS ORDERED: LIDOCAINE HCL 1% PF 5 ML SYRINGE OTHER ONE (12:00)
[2018-02-05] MEDS: PANTOPRAZOLE SOD 40 MG DELAYED RELEASE TAB PO SCH ×2 (12:00→20:43)
[2018-02-05] MEDS ORDERED: DO NOT ADM ANY ANTICOAGULANT DRUGS PRN (12:00)
[2018-02-05] MEDS ORDERED: PROPOFOL 200 MG/20 ML AMP IV ONE (12:00)
--- NOTE | 2018-02-05 12:06 | PD.PROCEDR ---
GI Procedure PROCEDURE PERFORMED EGD with biopsy followed by colonoscopy with snare polypectomy INDICATION FOR PROCEDURE Anorexia, weight loss, nausea vomiting, melena, rectal bleeding, and elevated liver function tests PROCEDURE: The procedure, risks and benefits were discussed with Patient/POA and informed consent was obtained. Anesthesia sedated Patient with Diprivan. Patient was placed in the left lateral decubitus position. EGD: The Pentax videoscope was introduced through the oropharynx and advanced to the second portion of the duodenum under direct visualization. Retroflexion was performed in the stomach. FINDINGS: The esophagus there was distal esophageal mucosal friability with ulceration and erythema this was biopsied this would be grade D reflux esophagitis the proximal esophagus was unremarkable no esophageal varices noted The stomach there was a small hiatal hernia the gastric mucosa appeared to be diffusely erythemic and a punctate and patchy fashion this was biopsied from the antrum no gastric varices no ulcerations or erosions no blood or bleeding The duodenum there was patchy erythema in the duodenal bulb this was biopsied the rest of the duodenum was unremarkable Colonoscopy: The Pentax videoscope was introduced through the rectum and advanced to cecum where the ileocecal valve and appendiceal orifice were identified. Retroflexion was performed in the rectum. Colonic prep was good FINDINGS: Colonic withdrawal time greater than 6 minutes. As the scope was slowly withdrawn colonic mucosa was carefully inspected patient was noted to have a small polyp in the cecum this was excised using cold snare technique there was a second polyp which was moderately sized in the descending colon this was excised using cold snare technique there was a slightly larger polyp in the sigmoid region this was excised using hot snare technique the patient was noted to have diverticulosis in the sigmoid this was mild retroflexion in rectum did reveal small size internal hemorrhoids otherwise rectal examination was unremarkable ESTIMATED BLOOD LOSS: None SPECIMENS REMOVED: Esophageal, gastric, duodenum, colon biopsies COMPLICATIONS: None IMPRESSION: Esophagitis grade D Hiatal hernia Gastritis Colon polyps Diverticulosis Internal hemorrhoids PLAN: Await biopsies Start pantoprazole 40 mg twice daily Continue with current supportive care Monitor labs Recommend EGD in 2 months Recommend colonoscopy in 5 years Ashvin Medina MD February 05, 2018 12:05
[2018-02-05] MEDS ORDERED: MIDAZOLAM HCL 2 MG/2 ML VIAL ONE (13:57)
[2018-02-05] MEDS ORDERED: CALCIUM GLUCONATE INJ 1 GM in SODIUM CHLORIDE 0.9% INJ 90 ML IV ONE (15:00)
[2018-02-05] MEDS: POTASSIUM CHLOR 20 MEQ PREMIX 100 ML IV PRN ×3 (16:08→23:50)
[2018-02-05] MEDS: ACETAMINOPHEN/HYDROcodone 325 MG/5 MG TAB PO PRN (16:28)
[2018-02-05] MEDS: MAGNESIUM SULFATE INJ 2 GM in SODIUM CHLORIDE 0.9% INJ 96 ML IV PRN (17:20)
[2018-02-05 21:25] LABS: BICARBONATE 23.2 MEQ/L (21.0-32.0); CALCIUM 6.3 MG/DL (8.5-10.1); CREATININE 0.49 MG/DL (0.60-1.30)
[2018-02-05 21:51] LABS: TOTAL PROTEIN 5.2 GM/DL (6.4-8.2)
[2018-02-05 21:55] LABS: CALCIUM-PROTEIN CORRECTED 7.2 MG/DL (8.5-10.1)
[2018-02-05] MEDS ORDERED: POTASSIUM CHLORIDE 25 MEQ EFFERVESCENT TAB PO ONE (22:15)
[2018-02-06] VITALS (12 sets, daily range): BP systolic 104–123; BP diastolic 68–87; PULSE 76–130; RESP 14–17; TEMP 98.4–99.6; O2SAT 95–98
[2018-02-06] MEDS: POTASSIUM CHLOR 20 MEQ PREMIX 100 ML IV PRN ×2 (03:53→18:19)
[2018-02-06 06:30] LABS: HEMATOCRIT 29.7 % (39.0-51.0); HEMOGLOBIN 10.3 GM/DL (13.0-17.0); MEAN CELL VOLUME 102.5 FL (80.0-100.0); MEAN CORPUSCULAR HEMOGLOBIN 35.4 PG (27.0-34.0); MEAN CORPUSCULAR HGB CONC 34.6 % (32.0-36.0); MEAN PLATELET VOLUME 11.2 FL (7.0-11.0); PLATELET COUNT 83 TH/MM3 (150-450); RED CELL DISTRIBUTION WIDTH 15.7 % (11.6-17.2); WHITE BLOOD COUNT 5.6 TH/MM3 (4.0-11.0)
[2018-02-06 07:16] LABS: ALBUMIN 2.6 GM/DL (3.4-5.0); BICARBONATE 27.2 MEQ/L (21.0-32.0); CREATININE 0.37 MG/DL (0.60-1.30); DIRECT BILIRUBIN ADULT 1.7 MG/DL (0.0-0.2); INDIRECT BILIRUBIN 0.8 MG/DL (0.0-0.8); PHOSPHORUS 0.3 MG/DL (2.5-4.9); TOTAL BILIRUBIN ADULT 2.5 MG/DL (0.2-1.0)
[2018-02-06 07:44] LABS: CALCIUM 6.4 MG/DL (8.5-10.1); TOTAL PROTEIN 5.3 GM/DL (6.4-8.2)
[2018-02-06 07:46] LABS: CALCIUM-PROTEIN CORRECTED 7.3 MG/DL (8.5-10.1)
--- NOTE | 2018-02-06 08:01 | HHI.PR ---
Subjective Remarks Patient still with severe multiple electrolyte abnormalities. He reports that he is feeling better. Still shaky. Objective Vitals Vital Signs Date Time Temp Pulse Resp B/P (MAP) Pulse Ox O2 Delivery O2 Flow Rate FiO2 02/06/18 06:00 92 02/06/18 04:00 95 02/06/18 04:00 99.2 95 14 123/82 (96) 95 02/06/18 02:00 130 02/06/18 00:00 98.4 87 14 118/76 (90) 95 02/06/18 00:00 87 02/05/18 22:00 90 02/05/18 20:00 103 02/05/18 20:00 98.7 103 12 101/63 (76) 93 02/05/18 18:00 110 02/05/18 16:00 97.6 94 15 112/73 (86) 96 02/05/18 16:00 124 02/05/18 14:00 96 02/05/18 12:00 97.5 112 15 114/73 (87) 98 Nasal Cannula 2 02/05/18 11:45 114 15 112/72 (85) 97 Nasal Cannula 2 02/05/18 11:38 97.6 115 14 107/60 (76) 99 Nasal Cannula 3 02/05/18 10:12 99.3 129 16 156/95 (115) 98 02/05/18 10:00 112 02/05/18 09:59 97 21 I/O 02/05/18 02/05/18 02/05/18 02/06/18 02/06/18 02/06/18 07:00 15:00 23:00 07:00 15:00 23:00 Intake Total 1274 ml 1375 ml 790 ml 440 ml Output Total 1050 ml 250 ml 520 ml Balance 224 ml 1125 ml 790 ml -80 ml Intake Oral 240 ml 240 ml 240 ml IV Total 1034 ml 975 ml 550 ml 200 ml Other 400 ml Output Urine Total 1050 ml 250 ml 520 ml # Voids 3 3 1 # Bowel Movements 5 5 4 Result Diagram: 02/06/18 0514 02/06/18 05 Objective Remarks GENERAL: Patient appear older than stated age, in no acute distress. CARDIOVASCULAR: Normal rate and regular rhythm without murmurs, gallops, or rubs. RESPIRATORY: Good respiratory efforts. Breath sounds equal and clear to auscultation bilaterally. GASTROINTESTINAL: Abdomen soft, non-tender, non-distended. Normal active bowel sounds MUSCULOSKELETAL: Extremities without cyanosis, or edema. NEURO: Alert & Oriented x4 to person, place, time, situation. Moves all ext x4. Tremulous. PSYCH: Calm Procedures None A/P Problem List: (1) Alcoholic liver disease ICD Code: K70.9 - Alcoholic liver disease, unspecified (2) Hepatic encephalopathy ICD Code: K72.90 - Hepatic failure, unspecified without coma Assessment and Plan 58-year-old male with a history of alcohol abuse who presents to the emergency department due to altered mental status, alcohol abuse. Patient has been drinking about 1.5 L of vodka every day. Acute hepatic encephalopathy Alcoholic ketoacidosis On presentation ammonia level 75. AST, ALT 431, 138 respectively. Alk phos 252. INR 1.1, total bilirubin 2.4 Bicarb 12.7 Anion gap 30 Multiple severe electrolytes abnormalities including Hypokalemia, hypomagnesemia , hypocalcemia -Follow up CMP in a.m. -Discontinue lactulose -continue on rifaximin 550 mg twice daily -continue to monitor - Replace electrolytes per ICU protocol -Give additional mag and potassium today. Alcoholic liver disease Dysphagia Weight loss Dysphagia and weight loss in the background of alcoholic liver disease. -GI following. Patient underwent EGD and colonoscopy which revealed esophagitis , gastritis, colon polyps, diverticulosis, and internal hemorrhoids. - Continue Protonix twice daily. -Speech therapy following. Alcohol dependence Early DTs. Having hallucinations Hypomagnesemia, give additional 2 g IV of magnesium sulfate in addition to the protocol dose. -Continue CIWA protocol. Folic acid, thiamine, IV fluid. Transaminitis, secondary to above AST 431, ALT 138, Alk phos 252 -Continue to trend LFTs -Avoid hepatotoxic agents -Liver ultrasound noted. Thrombocytopenia, suspect secondary to liver dysfunction INR 1.1 Platelet count improving -No evidence of active bleeding, continue to monitor -Continue to monitor platelet count and coag studies Macrocytic anemia -Iron level normal. Ferritin high. -Probably alcohol related and liver dysfunction. - continue to monitor Full code. Hold Lovenox. Discharge Planning Continue care in ICU. Aggressive electrolyte replacement. Randolph Holden MD February 06, 2018 08:01
[2018-02-06] MEDS ORDERED: CALCIUM GLUCONATE INJ 1 GM in SODIUM CHLORIDE 0.9% INJ 100 ML IV ONE (08:15)
[2018-02-06] MEDS: THIAMINE INJ 100 MG in SODIUM CHLORIDE 0.9% INJ 100 ML IV SCH (08:58)
[2018-02-06] MEDS: RIFAXIMIN 550 MG TAB PO SCH ×2 (08:58→19:32)
[2018-02-06] MEDS: FOLIC ACID 1 MG TAB PO SCH (08:58)
[2018-02-06] MEDS: PANTOPRAZOLE SOD 40 MG DELAYED RELEASE TAB PO SCH ×2 (08:58→19:32)
[2018-02-06] MEDS: CALCIUM CARBONATE 1.25 GM (CA 500 MG) TAB PO SCH ×2 (08:58→19:32)
[2018-02-06] MEDS: ACETAMINOPHEN/HYDROcodone 325 MG/5 MG TAB PO PRN (08:58)
[2018-02-06] MEDS: LACTULOSE SYRUP 20 GM/30 ML CUP PO SCH ×2 (08:58→13:04)
[2018-02-06] MEDS: SODIUM CHLORIDE 0.9% FLUSH 10 ML FLUSH IV FLUSH SCH ×2 (08:59→19:33)
[2018-02-06] MEDS: MAGNESIUM SULFATE 1 GM PREMIX 100 ML IV SCH ×2 (08:59→09:15)
--- NOTE | 2018-02-06 14:06 | HHI.GIFU ---
Subjective Remarks Resting in the bed Still having some nausea and abdominal pain Temp 99.2 Diarrhea multiple stools small amounts (Bev Tuttle) Objective Vitals I&O Vital Signs Date Time Temp Pulse Resp B/P (MAP) Pulse Ox O2 Delivery O2 Flow Rate FiO2 02/06/18 12:00 87 02/06/18 10:00 98 02/06/18 08:00 99.0 100 16 119/85 (96) 97 02/06/18 08:00 76 02/06/18 06:00 92 02/06/18 04:00 95 02/06/18 04:00 99.2 95 14 123/82 (96) 95 02/06/18 02:00 130 02/06/18 00:00 98.4 87 14 118/76 (90) 95 02/06/18 00:00 87 02/05/18 22:00 90 02/05/18 20:00 103 02/05/18 20:00 98.7 103 12 101/63 (76) 93 02/05/18 18:00 110 02/05/18 16:00 97.6 94 15 112/73 (86) 96 02/05/18 16:00 124 I/O 02/05/18 02/05/18 02/05/18 02/06/18 02/06/18 02/06/18 06:59 14:59 22:59 06:59 14:59 22:59 Intake Total 1274 ml 1375 ml 790 ml 440 ml 1150 ml Output Total 1050 ml 250 ml 520 ml Balance 224 ml 1125 ml 790 ml -80 ml 1150 ml Intake Oral 240 ml 240 ml 240 ml IV Total 1034 ml 975 ml 550 ml 200 ml 1150 ml Other 400 ml Output Urine Total 1050 ml 250 ml 520 ml # Voids 3 3 1 # Bowel Movements 5 5 4 Laboratory Laboratory Tests Test 02/05/18 20:23 02/06/18 05:14 02/06/18 10:30 Blood Urea Nitrogen 2 3 Creatinine 0.49 0.37 Random Glucose 188 105 Total Protein 5.2 5.3 Calcium Level 6.3 6.4 Sodium Level 140 141 Potassium Level 2.4 2.7 2.4 Chloride Level 99 99 Carbon Dioxide Level 23.2 27.2 Anion Gap 18 15 Estimat Glomerular Filtration Rate 175 243 Protein Corrected Calcium 7.2 7.3 Tumor Marker Alpha Fetoprotein 2.5 White Blood Count 5.6 Red Blood Count 2.90 Hemoglobin 10.3 Hematocrit 29.7 Mean Corpuscular Volume 102.5 Mean Corpuscular Hemoglobin 35.4 Mean Corpuscular Hemoglobin Concent 34.6 Red Cell Distribution Width 15.7 Platelet Count 83 Mean Platelet Volume 11.2 Albumin 2.6 Phosphorus Level 0.3 Magnesium Level 1.0 Alkaline Phosphatase 287 Aspartate Amino Transf (AST/SGOT) 275 Alanine Aminotransferase (ALT/SGPT) 98 Total Bilirubin 2.5 Direct Bilirubin 1.7 Indirect Bilirubin 0.8 Date/Time Source Procedure Growth Status 02/03/18 19:45 Blood Peripheral Aerobic Blood Culture - Preliminary NO GROWTH IN 3 DAYS Resulted 02/03/18 19:45 Blood Peripheral Anaerobic Blood Culture - Preliminary NO GROWTH IN 3 DAYS Resulted Imaging Last Impressions Liver Ultrasound 02/04/18 0000 Signed Impressions: CONCLUSION: 1. No evidence of gallstones or biliary tract obstruction. 2. Increased echogenicity throughout the liver suggestive of fatty infiltratio n and/or hepatocellular disease. Head CT 02/03/181928 Signed Impressions: Service Date/Time: Saturday, February 03, 2018 19:52 - CONCLUSION: 1. Significantly limited by motion artifact. 2. Chronic subdural fluid collections bilaterally. No acute hemorrhage. 3. No acute abnormality. Hollis Tobias Jr., MD Chest X-Ray 02/03/181928 Signed Impressions: Service Date/Time: Saturday, February 03, 2018 19:32 - CONCLUSION: Normal examination. Hollis Tobias Jr., MD Physical Exam HEENT: normocephalic; atraumatic; no jaundice. Speech understandable NECK: Neck is supple, no JVD, no lymphadenopathy. CHEST: Mild diminished breath sounds especially in the bases CARDIAC: Regular rate and rhythm. ABDOMEN: Round, soft, mild distention bowel sounds are present in all four quadrants. EXTREMITIES: No clubbing, cyanosis, or edema. SKIN: Normal; no rash; no jaundice. 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 pt cites loss > 100lbs in 2 months. drinks heavily, smokes. denies dysphagia. US liver pending. hx unclear. - n/v - unclear etiology. - ?melena - pt admits black tarry stools, can provide no further info. says he had EGD 2 months ago and was told he had ulcers. does not know where he had this done. - rectal bleeding - some months ago, resolved per pt. thinks he had recent colonoscopy but can provide no details - elevated LFTs - likely 2/2 etoh. US liver pending. etoh 415 on admission. hep panel pending. - elevated NH - 75. 02/06/2018 patient continues to have diarrhea and right lower abdominal pain. Incontinent of stool, positive for nausea but no vomiting and able to eat small amounts of regular food now. Patient has some generalized complaints of dysuria EGD was done on 02/05/2018 showing grade D esophagitis, hiatal hernia, gastritis , colon polyps, diverticulosis, and internal hemorrhoids. Labs total bilirubin 2.5 AST 275 ALT 98, alkaline phosphatase 287, total protein low at 5.3, albumin 2.6. Plan biopsies pending Continue Protonix 40 mg twice daily Folic acid, thiamine Antiemetics Monitor labs with special attention to hemoglobin currently 10.3 Recommend repeating EGD in 2 months and colonoscopy in 5 years Supportive care pt seen by myself and Dr. Medina, note written on his behalf (Bev Tuttle) Physician Comments Patient seen and examined Agree with above Continue with current supportive care Monitor labs Biopsies revealed severe reflux esophagitis and adenomatous polyps Labs consistent with alcoholic hepatitis workup for the liver in progress (Ashvin Medina MD) Bev Tuttle February 06, 2018 14:06 Ashvin Medina MD February 06, 2018 20:45
[2018-02-06 14:30] LABS: ALPHA-1-ANTITRYPSIN 92 mg/dL (100 - 190)
[2018-02-06] MEDS ORDERED: POTASSIUM CHLORIDE 25 MEQ EFFERVESCENT TAB PO ONE (15:00)
[2018-02-06 15:10] LABS: SMOOTH MUSCLE TOTAL AUTOABS Negative (Negative)
[2018-02-06] MEDS: POTASSIUM CHLORIDE 25 MEQ EFFERVESCENT TAB PO ONE ×2 (17:42→18:00)
[2018-02-07] VITALS (12 sets, daily range): BP systolic 101–137; BP diastolic 66–97; PULSE 67–112; RESP 15–57; TEMP 98.5–99.7; O2SAT 94–98
[2018-02-07 02:38] LABS: HEMATOCRIT 28.3 % (39.0-51.0); HEMOGLOBIN 9.7 GM/DL (13.0-17.0); MEAN CORPUSCULAR HEMOGLOBIN 35.2 PG (27.0-34.0); MEAN CORPUSCULAR HGB CONC 34.2 % (32.0-36.0); MEAN PLATELET VOLUME 11.2 FL (7.0-11.0); PLATELET COUNT 102 TH/MM3 (150-450); RED BLOOD COUNT 2.75 MIL/MM3 (4.50-5.90); RED CELL DISTRIBUTION WIDTH 15.3 % (11.6-17.2)
[2018-02-07 02:52] LABS: BICARBONATE 31.9 MEQ/L (21.0-32.0); CALCIUM 7.1 MG/DL (8.5-10.1); CREATININE 0.28 MG/DL (0.60-1.30); MAGNESIUM 1.2 MG/DL (1.5-2.5)
[2018-02-07] MEDS: POTASSIUM CHLOR 20 MEQ PREMIX 100 ML IV PRN ×6 (03:21→23:23)
[2018-02-07 03:24] LABS: CALCIUM-PROTEIN CORRECTED 8.1 MG/DL (8.5-10.1); TOTAL PROTEIN 5.3 GM/DL (6.4-8.2)
--- NOTE | 2018-02-07 08:41 | HHI.PR ---
Subjective Remarks Patient reports he is feeling better. Stool is becoming more formed. Still with significant electrolyte abnormalities. Objective Vitals Vital Signs Date Time Temp Pulse Resp B/P (MAP) Pulse Ox O2 Delivery O2 Flow Rate FiO2 02/07/18 06:00 94 02/07/18 04:00 99.7 91 17 137/88 (104) 98 02/07/18 04:00 91 02/07/18 02:00 93 02/07/18 00:00 99.1 87 16 123/81 (95) 95 02/07/18 00:00 87 02/06/18 22:00 91 02/06/18 20:00 108 02/06/18 20:00 99.1 108 14 121/87 (98) 98 02/06/18 18:00 95 02/06/18 16:00 99.0 93 17 105/70 (82) 95 02/06/18 16:00 93 02/06/18 14:00 91 02/06/18 12:00 98.5 87 16 104/68 (80) 95 02/06/18 12:00 87 02/06/18 10:00 98 I/O 02/06/18 02/06/18 02/06/18 02/07/18 02/07/18 02/07/18 07:00 15:00 23:00 07:00 15:00 23:00 Intake Total 440 ml 1360 ml 450 ml 460 ml Output Total 520 ml 650 ml 1100 ml Balance -80 ml 1360 ml -200 ml -640 ml Intake Oral 240 ml 350 ml 360 ml IV Total 200 ml 1360 ml 100 ml 100 ml Output Urine Total 520 ml 650 ml 1100 ml # Voids 1 # Bowel Movements 4 3 2 Result Diagram: 02/07/18 0203 02/07/18 0203 Objective Remarks GENERAL: Patient appear older than stated age, in no acute distress. CARDIOVASCULAR: Normal rate and regular rhythm without murmurs, gallops, or rubs. RESPIRATORY: Good respiratory efforts. Breath sounds equal and clear to auscultation bilaterally. GASTROINTESTINAL: Abdomen soft, non-tender, non-distended. Normal active bowel sounds MUSCULOSKELETAL: Extremities without cyanosis, or edema. NEURO: Alert & Oriented x4 to person, place, time, situation. Moves all ext x4. Less tremulous. PSYCH: Calm Procedures None A/P Problem List: (1) Alcoholic liver disease ICD Code: K70.9 - Alcoholic liver disease, unspecified (2) Hepatic encephalopathy ICD Code: K72.90 - Hepatic failure, unspecified without coma Assessment and Plan 58-year-old male with a history of alcohol abuse who presents to the emergency department due to altered mental status, alcohol abuse. Patient has been drinking about 1.5 L of vodka every day. Acute hepatic encephalopathy Alcoholic ketoacidosis On presentation ammonia level 75. AST, ALT 431, 138 respectively. Alk phos 252. INR 1.1, total bilirubin 2.4 Bicarb 12.7 Anion gap 30 Multiple severe electrolytes abnormalities including Hypokalemia, hypomagnesemia , hypocalcemia -Follow up CMP in a.m. -Discontinue lactulose -continue on rifaximin 550 mg twice daily -continue to monitor - Replace electrolytes per ICU protocol -Still with significant hypokalemia, hypomagnesemia. Replace aggressively Alcoholic liver disease severe protein-calorie malnutrition with weight loss, low albumin. Dysphagia -GI following. Patient underwent EGD and colonoscopy which revealed esophagitis , gastritis, colon polyps, diverticulosis, and internal hemorrhoids. - Continue Protonix twice daily. -Speech therapy following. Reg diet with thin liquids. Alcohol dependence Early DTs. No longer having hallucinations. Hypomagnesemia, give additional 4 g IV of magnesium sulfate. -Continue CIWA protocol. Folic acid, thiamine, IV fluid. Transaminitis, secondary to above AST 431, ALT 138, Alk phos 252 -Continue to trend LFTs -Avoid hepatotoxic agents -Liver ultrasound noted. Thrombocytopenia, suspect secondary to liver dysfunction INR 1.1 Platelet count improving -No evidence of active bleeding, continue to monitor -Continue to monitor platelet count and coag studies Macrocytic anemia -Iron level normal. Ferritin high. -Probably alcohol related and liver dysfunction. - continue to monitor Full code. Hold Lovenox. Discharge Planning Continue care in ICU. Aggressive electrolyte replacement. Randolph Holden MD February 07, 2018 08:41
[2018-02-07] MEDS: PANTOPRAZOLE SOD 40 MG DELAYED RELEASE TAB PO SCH ×2 (08:54→21:01)
[2018-02-07] MEDS: RIFAXIMIN 550 MG TAB PO SCH ×2 (08:54→21:01)
[2018-02-07] MEDS: FOLIC ACID 1 MG TAB PO SCH ×2 (08:54→09:00)
[2018-02-07] MEDS: CALCIUM CARBONATE 1.25 GM (CA 500 MG) TAB PO SCH ×2 (08:54→21:01)
[2018-02-07] MEDS: MAGNESIUM SULFATE INJ 2 GM in SODIUM CHLORIDE 0.9% INJ 96 ML IV PRN (08:55)
[2018-02-07] MEDS: THIAMINE INJ 100 MG in SODIUM CHLORIDE 0.9% INJ 100 ML IV SCH ×2 (08:55→11:18)
[2018-02-07] MEDS: SODIUM CHLORIDE 0.9% FLUSH 10 ML FLUSH IV FLUSH SCH ×2 (08:55→21:01)
[2018-02-07] MEDS ORDERED: LACTULOSE SYRUP 20 GM/30 ML CUP PO SCH (09:00)
[2018-02-07] MEDS: MAGNESIUM SULFATE 1 GM PREMIX 100 ML IV SCH ×2 (11:17→11:30)
--- NOTE | 2018-02-07 11:53 | HHI.GIFU ---
Subjective Remarks Diarrhea improving, less abdominal pain today No fevers Hemoglobin 9.7 no obvious bleeding Still having some nausea but able to eat small amounts of regular food (Bev Tuttle) Objective Vitals I&O Vital Signs Date Time Temp Pulse Resp B/P (MAP) Pulse Ox O2 Delivery O2 Flow Rate FiO2 02/07/18 06:00 94 02/07/18 04:00 99.7 91 17 137/88 (104) 98 02/07/18 04:00 91 02/07/18 02:00 93 02/07/18 00:00 99.1 87 16 123/81 (95) 95 02/07/18 00:00 87 02/06/18 22:00 91 02/06/18 20:00 108 02/06/18 20:00 99.1 108 14 121/87 (98) 98 02/06/18 18:00 95 02/06/18 16:00 99.0 93 17 105/70 (82) 95 02/06/18 16:00 93 02/06/18 14:00 91 02/06/18 12:00 98.5 87 16 104/68 (80) 95 02/06/18 12:00 87 I/O 02/06/18 02/06/18 02/06/18 02/07/18 02/07/18 02/07/18 07:00 15:00 23:00 07:00 15:00 23:00 Intake Total 440 ml 1360 ml 450 ml 460 ml Output Total 520 ml 650 ml 1100 ml Balance -80 ml 1360 ml -200 ml -640 ml Intake Oral 240 ml 350 ml 360 ml IV Total 200 ml 1360 ml 100 ml 100 ml Output Urine Total 520 ml 650 ml 1100 ml # Voids 1 # Bowel Movements 4 3 2 Laboratory Laboratory Tests Test 02/07/18 02:03 White Blood Count 5.0 Red Blood Count 2.75 Hemoglobin 9.7 Hematocrit 28.3 Mean Corpuscular Volume 103.0 Mean Corpuscular Hemoglobin 35.2 Mean Corpuscular Hemoglobin Concent 34.2 Red Cell Distribution Width 15.3 Platelet Count 102 Mean Platelet Volume 11.2 Blood Urea Nitrogen 3 Creatinine 0.28 Random Glucose 137 Total Protein 5.3 Calcium Level 7.1 Magnesium Level 1.2 Sodium Level 141 Potassium Level 2.7 Chloride Level 99 Carbon Dioxide Level 31.9 Anion Gap 10 Estimat Glomerular Filtration Rate 335 Protein Corrected Calcium 8.1 Date/Time Source Procedure Growth Status 02/03/18 19:45 Blood Peripheral Aerobic Blood Culture - Preliminary NO GROWTH IN 4 DAYS Resulted 02/03/18 19:45 Blood Peripheral Anaerobic Blood Culture - Preliminary NO GROWTH IN 4 DAYS Resulted Imaging Last Impressions Liver Ultrasound 02/04/18 0000 Signed Impressions: CONCLUSION: 1. No evidence of gallstones or biliary tract obstruction. 2. Increased echogenicity throughout the liver suggestive of fatty infiltratio n and/or hepatocellular disease. Head CT 02/03/181928 Signed Impressions: Service Date/Time: Saturday, February 03, 2018 19:52 - CONCLUSION: 1. Significantly limited by motion artifact. 2. Chronic subdural fluid collections bilaterally. No acute hemorrhage. 3. No acute abnormality. Hollis Tobias Jr., MD Chest X-Ray 02/03/181928 Signed Impressions: Service Date/Time: Saturday, February 03, 2018 19:32 - CONCLUSION: Normal examination. Hollis Tobias Jr., MD Physical Exam HEENT: normocephalic; atraumatic; pale, mild jaundice NECK: Neck is supple, no JVD, no lymphadenopathy. CHEST: Mild diminished breath sounds especially in the bases, no obvious rhonchi CARDIAC: Regular rate and rhythm., Distant but no murmur noted ABDOMEN: Round, tympanic, mild distention , bowel sounds are present/gurgling, mild lower abdominal cramping off and on. EXTREMITIES: No clubbing, cyanosis, or edema. SKIN: Normal; no rash; no jaundice. BLIND CLEANER: Fair to poor historian (Bev Tuttle) Assessment and Plan Plan ASSESSMENT - anorexia, weight loss - unclear etiology. pt cites loss > 100lbs in 2 months. drinks heavily, smokes. denies dysphagia. US liver pending. hx unclear. - n/v - unclear etiology. - ?melena - pt admits black tarry stools, can provide no further info. says he had EGD 2 months ago and was told he had ulcers. does not know where he had this done. - rectal bleeding - some months ago, resolved per pt. thinks he had recent colonoscopy but can provide no details - elevated LFTs - likely 2/2 etoh. US liver pending. etoh 415 on admission. hep panel pending. - elevated NH - 75. 02/06/2018 patient continues to have diarrhea and right lower abdominal pain. Incontinent of stool, positive for nausea but no vomiting and able to eat small amounts of regular food now. Patient has some generalized complaints of dysuria EGD was done on 02/05/2018 showing grade D esophagitis, hiatal hernia, gastritis , colon polyps, diverticulosis, and internal hemorrhoids. 02/07/2018 patient is having less diarrhea still complains of some lower abdominal cramping and pain. Nausea but no vomiting but is eating small amounts of regular food. Symptoms are probably related to esophagitis and patient is currently taking Protonix daily will need to continue to monitor upper GI symptoms as well as his LFTs for alcoholic hepatitis. Labs noted on total bilirubin 2.5, AST 2-75, ALT 98, alkaline phosphatase 287, with total protein levels low 5.3, Alpha I antitrypsin 2.6. Current hemoglobin 9.7 no obvious bleeding. Lactulose which was ordered daily has now been held. Will check ammonia level in the morning and monitor patient's mental status. Plan Diet heart healthy Check ammonia level in the morning biopsies pending Continue Protonix 40 mg twice daily Folic acid, thiamine Antiemetics Monitor labs with special attention to hemoglobin Recommend repeating EGD in 2 months and colonoscopy in 5 years Supportive care pt seen by myself and Dr. Medina, note written on his behalf (Bev Tuttle) Physician Comments Patient seen and examined Agree with above Continue with current supportive care Monitor labs (Ashvin Medina MD) Bev Tuttle February 07, 2018 11:53 Ashvin Medina MD February 07, 2018 13:20
[2018-02-07 16:48] LABS: BILIRUBIN, URINE NEG (NEG); BLOOD, URINE NEG (NEG); GLUCOSE,URINE NEG (NEG); KETONE, URINE 10 mg/dL (NEG); NITRITE,URINE NEG (NEG); URINE COLOR YELLOW (YELLW/STRAW); URINE LEUKOCYTE ESTERASE NEG (NEG)
[2018-02-07 18:15] LABS: BICARBONATE 29.1 MEQ/L (21.0-32.0); CALCIUM 7.7 MG/DL (8.5-10.1); CREATININE 0.36 MG/DL (0.60-1.30); MAGNESIUM 2.1 MG/DL (1.5-2.5)
[2018-02-08] VITALS: BP 119/84; PULSE 91; RESP 13; TEMP 98.9; O2SAT 99
[2018-02-08 04:00] VITALS: BP 115/83; PULSE 104; RESP 15; TEMP 98.9; O2SAT 97
[2018-02-08 04:20] LABS: HEMATOCRIT 30.3 % (39.0-51.0); HEMOGLOBIN 10.4 GM/DL (13.0-17.0); MEAN CELL VOLUME 104.4 FL (80.0-100.0); MEAN CORPUSCULAR HEMOGLOBIN 35.7 PG (27.0-34.0); MEAN CORPUSCULAR HGB CONC 34.2 % (32.0-36.0); MEAN PLATELET VOLUME 10.3 FL (7.0-11.0); PLATELET COUNT 151 TH/MM3 (150-450); RED CELL DISTRIBUTION WIDTH 15.2 % (11.6-17.2); WHITE BLOOD COUNT 4.6 TH/MM3 (4.0-11.0)
[2018-02-08 04:27] LABS: INTERNATIONAL NORMALIZED RATIO 1.1 RATIO; PROTHROMBIN TIME - PATIENT 10.9 SEC (9.8-11.6)
[2018-02-08 04:50] LABS: ALBUMIN 2.8 GM/DL (3.4-5.0); BICARBONATE 26.6 MEQ/L (21.0-32.0); CALCIUM 7.9 MG/DL (8.5-10.1); CREATININE 0.31 MG/DL (0.60-1.30); DIRECT BILIRUBIN ADULT 1.1 MG/DL (0.0-0.2); INDIRECT BILIRUBIN 0.5 MG/DL (0.0-0.8); MAGNESIUM 1.5 MG/DL (1.5-2.5); TOTAL BILIRUBIN ADULT 1.6 MG/DL (0.2-1.0); TOTAL PROTEIN 5.9 GM/DL (6.4-8.2)
[2018-02-08 06:00] VITALS: PULSE 104
[2018-02-08 07:00] VITALS: BP 122/85; PULSE 110; RESP 12; O2SAT 97
[2018-02-08] MEDS: MAGNESIUM SULFATE INJ 2 GM in SODIUM CHLORIDE 0.9% INJ 96 ML IV PRN (07:45)
[2018-02-08 08:00] VITALS: BP 132/99; PULSE 108; RESP 13; TEMP 98.1; O2SAT 95
[2018-02-08] MEDS: PANTOPRAZOLE SOD 40 MG DELAYED RELEASE TAB PO SCH (08:25)
[2018-02-08] MEDS: FOLIC ACID 1 MG TAB PO SCH (08:25)
[2018-02-08] MEDS: SODIUM CHLORIDE 0.9% FLUSH 10 ML FLUSH IV FLUSH SCH (08:25)
[2018-02-08] MEDS: RIFAXIMIN 550 MG TAB PO SCH (08:25)
[2018-02-08] MEDS: CALCIUM CARBONATE 1.25 GM (CA 500 MG) TAB PO SCH (08:25)
[2018-02-08] MEDS: THIAMINE INJ 100 MG in SODIUM CHLORIDE 0.9% INJ 100 ML IV SCH (08:33)
[2018-02-08] MEDS ORDERED: XIFA550T4 PO (08:56)
[2018-02-08] MEDS ORDERED: PANT40TA3 PO (08:56)
[2018-02-08] MEDS ORDERED: POTA-163 PO (08:58)
--- NOTE | 2018-02-08 09:01 | HHI.FF ---
Face to Face Verification Diagnosis: (1) Electrolyte abnormality (2) Hypokalemia (3) Hypomagnesemia (4) Hypocalcemia (5) Hepatic encephalopathy (6) Alcoholic liver disease (7) Protein calorie malnutrition (8) Debility Physical Therapy Order: Evaluate and Treat, Improve ambulation, Strength and gait training Home Health Nursing Order: Medical education Medication education-adverse effect I have seen patient Michael Willard on 02/08/18. My clinical findings support the need for the requested home health care services because: Deconditioned w/ increased weakness Limited ability to care for self I certify that my clinical findings support that this patient is homebound because: Unsteady gait/balance Need for psychosocial assistance Randolph Holden MD February 08, 2018 09:01
--- NOTE | 2018-02-08 09:02 | HHI.DS ---
Discharge Summary Admission Date February 03, 2018 at 20:56 Discharge Date: February 08, 2018 Admitting Diagnosis altered mental status, hepatic encephalopathy, alcohol abuse (1) Alcoholic liver disease ICD Code: K70.9 - Alcoholic liver disease, unspecified (2) Hepatic encephalopathy ICD Code: K72.90 - Hepatic failure, unspecified without coma Procedures None Brief History - From Admission HPI from the admitting physician Mr. Rodriguez is a 58 year old male with a history of alcohol abuse who presents to the ED on 02/03/2018 due to altered mental status and alcohol abuse. He has been drinking about 1.5 L of vodka every day. Per ED note patient was fairly altered and intoxicated at the time of the examination. At the time of this interview, patient is alert, oriented 3 and able to converse coherently. He admits to drinking a lot. Denies any chest pain, shortness of breath, cough, fever or chills. No abdominal pain. He does report significant dysphagia especially to solids. His dysphagia symptoms have been present for about 3 months during which he has lost about 50 pounds. Whenever he eats, he throws up. Denies any changes in bowel or bladder habits. CBC/BMP: 02/08/18 0338 02/08/18 0338 Significant Findings Laboratory Tests Test 02/05/18 20:23 02/06/18 05:14 02/06/18 10:30 02/07/18 02:03 Blood Urea Nitrogen 2 MG/DL (7-18) 3 MG/DL (7-18) 3 MG/DL (7-18) Creatinine 0.49 MG/DL (0.60-1.30) 0.37 MG/DL (0.60-1.30) 0.28 MG/DL (0.60-1.30) Random Glucose 188 MG/DL (74-106) 137 MG/DL (74-106) Total Protein 5.2 GM/DL (6.4-8.2) 5.3 GM/DL (6.4-8.2) 5.3 GM/DL (6.4-8.2) Calcium Level 6.3 MG/DL (8.5-10.1) 6.4 MG/DL (8.5-10.1) 7.1 MG/DL (8.5-10.1) Potassium Level 2.4 MEQ/L (3.5-5.1) 2.7 MEQ/L (3.5-5.1) 2.4 MEQ/L (3.5-5.1) 2.7 MEQ/L (3.5-5.1) Anion Gap 18 MEQ/L (5-15) Protein Corrected Calcium 7.2 MG/DL (8.5-10.1) 7.3 MG/DL (8.5-10.1) 8.1 MG/DL (8.5-10.1) Red Blood Count 2.90 MIL/MM3 (4.50-5.90) 2.75 MIL/MM3 (4.50-5.90) Hemoglobin 10.3 GM/DL (13.0-17.0) 9.7 GM/DL (13.0-17.0) Hematocrit 29.7 % (39.0-51.0) 28.3 % (39.0-51.0) Mean Corpuscular Volume 102.5 FL (80.0-100.0) 103.0 FL (80.0-100.0) Mean Corpuscular Hemoglobin 35.4 PG (27.0-34.0) 35.2 PG (27.0-34.0) Platelet Count 83 TH/MM3 (150-450) 102 TH/MM3 (150-450) Mean Platelet Volume 11.2 FL (7.0-11.0) 11.2 FL (7.0-11.0) Albumin 2.6 GM/DL (3.4-5.0) Phosphorus Level 0.3 MG/DL (2.5-4.9) Magnesium Level 1.0 MG/DL (1.5-2.5) 1.2 MG/DL (1.5-2.5) Alkaline Phosphatase 287 U/L (45-117) Aspartate Amino Transf (AST/SGOT) 275 U/L (15-37) Alanine Aminotransferase (ALT/SGPT) 98 U/L (12-78) Total Bilirubin 2.5 MG/DL (0.2-1.0) Direct Bilirubin 1.7 MG/DL (0.0-0.2) Test 02/07/18 12:20 02/07/18 15:57 02/08/18 03:38 Urine Ketones 10 mg/dL (NEG) Blood Urea Nitrogen 3 MG/DL (7-18) 4 MG/DL (7-18) Creatinine 0.36 MG/DL (0.60-1.30) 0.31 MG/DL (0.60-1.30) Random Glucose 184 MG/DL (74-106) 126 MG/DL (74-106) Calcium Level 7.7 MG/DL (8.5-10.1) 7.9 MG/DL (8.5-10.1) Potassium Level 3.1 MEQ/L (3.5-5.1) Red Blood Count 2.90 MIL/MM3 (4.50-5.90) Hemoglobin 10.4 GM/DL (13.0-17.0) Hematocrit 30.3 % (39.0-51.0) Mean Corpuscular Volume 104.4 FL (80.0-100.0) Mean Corpuscular Hemoglobin 35.7 PG (27.0-34.0) Total Protein 5.9 GM/DL (6.4-8.2) Albumin 2.8 GM/DL (3.4-5.0) Alkaline Phosphatase 291 U/L (45-117) Aspartate Amino Transf (AST/SGOT) 141 U/L (15-37) Total Bilirubin 1.6 MG/DL (0.2-1.0) Direct Bilirubin 1.1 MG/DL (0.0-0.2) Ammonia 100 MCMOL/L (11-32) Imaging Last Impressions Liver Ultrasound 02/04/18 0000 Signed Impressions: CONCLUSION: 1. No evidence of gallstones or biliary tract obstruction. 2. Increased echogenicity throughout the liver suggestive of fatty infiltratio n and/or hepatocellular disease. Head CT 02/03/181928 Signed Impressions: Service Date/Time: Saturday, February 03, 2018 19:52 - CONCLUSION: 1. Significantly limited by motion artifact. 2. Chronic subdural fluid collections bilaterally. No acute hemorrhage. 3. No acute abnormality. Hollis Tobias Jr., MD Chest X-Ray 02/03/181928 Signed Impressions: Service Date/Time: Saturday, February 03, 2018 19:32 - CONCLUSION: Normal examination. Hollis Tobias Jr., MD PE at Discharge GENERAL: Patient appear older than stated age, in no acute distress. CARDIOVASCULAR: Normal rate and regular rhythm without murmurs, gallops, or rubs. RESPIRATORY: Good respiratory efforts. Breath sounds equal and clear to auscultation bilaterally. GASTROINTESTINAL: Abdomen soft, non-tender, non-distended. Normal active bowel sounds MUSCULOSKELETAL: Extremities without cyanosis, or edema. NEURO: Alert & Oriented x4 to person, place, time, situation. Moves all ext x4. Less tremulous. PSYCH: Calm Pt update on day of discharge Patient reports he is feeling much better. Eating well. We discussed discharge planning at length. He was strongly counseled against using alcohol. He states he is done with drinking. Hospital Course 58-year-old male with a history of alcohol abuse who presents to the emergency department due to altered mental status, alcohol abuse. Patient has been drinking about 1.5 L of vodka every day. Evaluation and treatment course detailed below: Acute hepatic encephalopathy Alcoholic ketoacidosis On presentation ammonia level 75. AST, ALT 431, 138 respectively. Alk phos 252. INR 1.1, total bilirubin 2.4 Bicarb 12.7 Anion gap 30 Multiple severe electrolytes abnormalities including Hypokalemia, hypomagnesemia , hypocalcemia -continue on rifaximin 550 mg twice daily -Electrolytes were replaced aggressively in the ICU per protocol. Alcoholic liver disease severe protein-calorie malnutrition with weight loss, low albumin. Dysphagia -GI following. Patient underwent EGD and colonoscopy which revealed esophagitis , gastritis, colon polyps, diverticulosis, and internal hemorrhoids. Pathology pending. - Continue Protonix twice daily. -Speech therapy followed. Reg diet with thin liquids. Alcohol dependence Early DTs. Symptoms improved. No longer having hallucinations. Patient was treated per CIWA protocol. Folic acid, thiamine, IV fluid. - The patient was extensively counseled on alcohol cessation. He states he will no longer drink. Transaminitis, secondary to above AST 431, ALT 138, Alk phos 252 -LFTs trended down. -Liver ultrasound noted as above. Thrombocytopenia, suspect secondary to liver dysfunction INR 1.1 Platelet count improved -No evidence of active bleeding, continue to monitor Macrocytic anemia -Iron level normal. Ferritin high. -Probably alcohol related and liver dysfunction. Debility: Secondary to above. PT followed the patient. Home physical therapy ordered. Pt Condition on Discharge: Good Discharge Disposition: Disch w/ Home Health Serv Discharge Time: > 30 minutes Discharge Instructions DIET: Follow Instructions for: Heart Healthy Diet Activities you can perform: Regular-No Restrictions, See Additionl Instruction Follow up Referrals: Gastroenterology @ [facility] New Medications: Potassium Chloride ER (Potassium Chloride ER) 20 Meq Tab 20 MEQ PO DAILY for Electrolyte Replacement, #10 TAB 0 Refills Pantoprazole (Pantoprazole) 40 Mg Tab 40 MG PO BID, #60 TAB Rifaximin (Xifaxan) 550 Mg Tab 550 MG PO BID, #60 TAB Continued Medications: Metoprolol Tartrate (Metoprolol Tartrate) 25 Mg Tab 25 MG PO DAILY, #30 TAB 0 Refills Randolph Holden MD February 08, 2018 09:02
[2018-02-08 10:00] VITALS: BP 128/92; PULSE 112; RESP 28; O2SAT 93
[2018-02-09 19:52] LABS: CERULOPLASMIN 18 mg/dL (18-36)
[2018-02-10 03:49] LABS: MITOCHONDRIAL ABS LESS THAN 20.0 U (<=20.0)
== END 2018-02-08 10:10 | disposition home health service (06) | DRG 432 ==
LOC: NEPE 19:05 → NEDA 20:56 → NEPGCP 22:16 → HIME 02-04 12:40 → HIMW 02-05 03:50 → HIME 02-06 20:30
PROVIDERS: ADMIT Family Medicine; ATTEND Family Medicine
PROC: 0DB38ZX Excision of Lower Esophagus, Via Natural or Artificial Opening Endoscopic, Diagnostic (ICD-10-PCS; 2018-02-05)
PROC: 0DBH8ZX Excision of Cecum, Via Natural or Artificial Opening Endoscopic, Diagnostic (ICD-10-PCS; 2018-02-05)
PROC: 0DBN8ZX Excision of Sigmoid Colon, Via Natural or Artificial Opening Endoscopic, Diagnostic (ICD-10-PCS; 2018-02-05)
PROC: 0DBM8ZX Excision of Descending Colon, Via Natural or Artificial Opening Endoscopic, Diagnostic (ICD-10-PCS; 2018-02-05)
PROC: 0DB98ZX Excision of Duodenum, Via Natural or Artificial Opening Endoscopic, Diagnostic (ICD-10-PCS; principal; 2018-02-05 10:54)
PROC: 0DB68ZX Excision of Stomach, Via Natural or Artificial Opening Endoscopic, Diagnostic (ICD-10-PCS; 2018-02-05 10:54)
DX: K70.40 Alcoholic hepatic failure without coma (principal); E43 Unspecified severe protein-calorie malnutrition; F10.231 Alcohol dependence with withdrawal delirium; D69.59 Other secondary thrombocytopenia; E87.2 Acidosis; E83.42 Hypomagnesemia; Z68.1 Body mass index [BMI] 19.9 or less, adult; E83.51 Hypocalcemia; R13.10 Dysphagia, unspecified; I10 Essential (primary) hypertension; Y90.8 Blood alcohol level of 240 mg/100 ml or more; F17.210 Nicotine dependence, cigarettes, uncomplicated; F32.9 Major depressive disorder, single episode, unspecified; E87.6 Hypokalemia; D53.9 Nutritional anemia, unspecified; D12.5 Benign neoplasm of sigmoid colon; D12.0 Benign neoplasm of cecum; K64.8 Other hemorrhoids; D12.4 Benign neoplasm of descending colon; K44.9 Diaphragmatic hernia without obstruction or gangrene; K29.70 Gastritis, unspecified, without bleeding; K57.30 Diverticulosis of large intestine without perforation or abscess without bleeding; K21.0 Gastro-esophageal reflux disease with esophagitis
CPT/HCPCS: 36600; 70450; 71045; 76705; 76937; 80048; 80053; 80074; 80076; 80307; 81001; 82103; 82105; 82140; 82378; 82390; 82550; 82607; 82728; 82747; 82805; 83520; 83540; 83550; 83735; 83930; 84100; 84132; 84155; 84443; 85007; 85027; 85610; 85730; 86038; 86255; 86301; 87040; 87641; 88305; 88312; J0610; J1650; J2250; J2405; J3411; J3475; J3480; J7030; J7050